=== PATIENT | female | born 1955 ===

== ENCOUNTER 2024-02-24 13:35 | Emergency (ER) | payer OTHER, SELFPAY ==
[2024-02-24 13:38] VITALS: BP 143/71
--- NOTE | 2024-02-24 14:41 | ED.GENMED ---
History of Present Illness
General
Chief Complaint: Skin Problem
Source: patient
Time Seen by Provider: 02/24/24 14:18
Travel History
Have you had any contact with someone who has COVID-19?: No
Do you have any symptoms of coronavirus? Fever > 100 degrees, chills, cough, shortness of breath, sore throat, loss of taste or smell, muscle aches, or headache?: No
History of Present Illness
History of Present Illness:
68-year-old female presenting to the emergency department for evaluation after she is status post right total knee replacement, noticed this morning that 1 staple had not been removed prompting her to come to the ER today. She notes a follow-up
within 2 weeks with her orthopedic surgeon at [facility]. Patient has been taking her usual pain medications as prescribed but is otherwise denying any fevers, chills, rigors or any other infectious symptoms.
Past History
Past History
ED Past Medical History: HTN
ED Past Surgical History: Orthopedic
Social History
Tobacco: Non-smoker
Alcohol: None
Drug: None
Personal:
Living: with family
Review of Systems
Review of Systems
All Other Systems: ROS reviewed and negative except as documented in HPI and ROS
Phy Exam
Physical Exam
Physical Exam:
GENERAL: Alert , in no apparent distress
EYE: conjunctiva clear
Head: Normocephalic atraumatic
NECK: Supple,
ENT: mmm.
LUNGS: no acute respiratory distress
NEUROLOGICAL: Alert and oriented
SKIN: Warm and dry, well-healing vertically oriented scar but there is 1 small area of less than 5 mm wound dehiscence with what appears to be a staple underneath. There is no overlying erythema, warmth or tenderness.
MUSCULOSKELETAL: well perfused.
PSYCH: Normal and appropriate interaction.
Scores
Heart Failure Risk
Heart Failure Risk Score: Not Applicable
Heart Score for Chest Pain Patients
STEMI patient?: Not applicable
Withdrawal Assessment of Alcohol
Withdrawal Assessment Completed?: Not applicable
Course
Vital Signs
Initial and Last Documented VS:
Initial Vital Signs
Temp Pulse Resp BP Pulse Ox
98.2 F 55 16 143/71 98
02/24/24 13:38 02/24/24 13:38 02/24/24 13:38 02/24/24 13:38 02/24/24 13:38
Last Documented Vital Signs
Temp Pulse Resp BP Pulse Ox
98.2 F 55 16 143/71 98
02/24/24 13:38 02/24/24 13:38 02/24/24 13:38 02/24/24 13:38 02/24/24 13:38
Procedures
Laceration Closure
Right Anterior Knee:
Status of Wound: clean
Size of Wound in cm: 0.4
Description of Wound Edges: sharp
Preparation: cleaned with SurClens
Anesthesia: 1% Lidocaine
Skin Closure Material: 4-0 nylon
Number of sutures: 1
Foreign Body Removal-Skin
Wound explored and foreign body removed?: Yes
Anesthesia: 1% lidocaine
Foreign body removed using: incision
Foreign body removed: completely
MDM/Problems Addressed
MDM/Problems Addressed:
68-year-old female presenting emergency department for evaluation after noticing that despite having wade removed as an outpatient, 1 staple remained. There is no sign of infection. As noted above I anesthetized the area where stable was as
this was buried underneath the dermal layer of skin. I had to make a less than 4 mm incision to further expose the staple. Using staple remover I was able to remove the staple in its entirety. Loosely sutured the incisional area that was made
with one 4-0 nylon suture. Dressing was applied. Patient stable for discharge home. She will follow-up with her orthopedic surgeon as scheduled.
*Pulse Oximetry
Patient hypoxic: no
*Critical Care Note
Total Time (30-74mins, 75-104mins- exclusive of procedures): Not Applicable
ED Attending Note
-
Portions of this chart may have been created with voice recognition software.� Occasional wrong word or��sound alike� substitutions may have occurred due to the inherent limitations of voice recognition software.
Discharge Plan
Departure
Patient Disposition: Home (Routine Discharge)
Date of Disposition: 02/24/24
Time of Disposition: 14:41
Patient with high blood pressure during this ER visit?: No
Discharge Problem:
Removal of staple
Instructions: Wound Care (DC)
Interventions
Interventions:
*Risk Screen - Suicide Last Done: 02/24/24 13:38
*General Assessment Last Done: 02/24/24 13:38
*Neglect/Abuse Screening Last Done: 02/24/24 13:38
ED- Fall Risk Assessment Last Done: 02/24/24 14:57
*ED COVID-19 Vaccine History Last Done: 02/24/24 14:57
*Nursing Disposition Last Done: 02/24/24 14:57
ED-Skin Assessment Last Done: 02/24/24 14:57
Discharge Date and Time
Print Language: EGYPTIAN
== END 2024-02-24 15:00 | disposition home or self-care (01) ==
LOC: EMR 13:35
PROVIDERS: EMERGENCY PHYSICIAN Emergency Medicine; FAMILY PHYSICIAN Family Medicine
DX: T81.89XA Other complications of procedures, not elsewhere classified, initial encounter (principal); Y83.8 Other surgical procedures as the cause of abnormal reaction of the patient, or of later complication, without mention of misadventure at the time of the procedure
CPT/HCPCS: 99284; 10120

== ENCOUNTER 2024-03-11 09:59 | Outpatient (RCR) | payer OTHER, SELFPAY | END 2024-03-11 23:59 | disposition home or self-care (01) | LOC: RPT 09:59 | PROVIDERS: ATTENDING PHYSICIAN Orthopaedic Surgery; FAMILY PHYSICIAN Family Medicine | DX: Z47.89 Encounter for other orthopedic aftercare (principal); R26.2 Difficulty in walking, not elsewhere classified; M62.81 Muscle weakness (generalized); Z73.6 Limitation of activities due to disability; M25.561 Pain in right knee; R26.89 Other abnormalities of gait and mobility; Z96.651 Presence of right artificial knee joint | CPT/HCPCS: 97010; 97110; 97163; 97530 ==

== ENCOUNTER 2024-04-11 10:58 | Outpatient (RCR) | payer OTHER, SELFPAY | END 2024-04-11 12:34 | disposition home or self-care (01) | LOC: RPT 10:58 | PROVIDERS: ATTENDING PHYSICIAN Orthopaedic Surgery; FAMILY PHYSICIAN Family Medicine | DX: Z47.1 Aftercare following joint replacement surgery (principal); Z96.651 Presence of right artificial knee joint; Z73.6 Limitation of activities due to disability | CPT/HCPCS: 97010; 97110; 97530 ==

== ENCOUNTER → 2024-07-30 10:38 | Outpatient (REF) | payer OTHER, SELFPAY | LOC: RAD 10:38 | PROVIDERS: ATTENDING PHYSICIAN Family Medicine | DX: M25.562 Pain in left knee (principal) | CPT/HCPCS: 73564 ==

== ENCOUNTER → 2024-08-15 14:46 | Outpatient (REF) | payer OTHER, SELFPAY | LOC: WDC 14:46 | PROVIDERS: ATTENDING PHYSICIAN Family Medicine | DX: Z12.31 Encounter for screening mammogram for malignant neoplasm of breast (principal) | CPT/HCPCS: 77063; 77067 ==

== ENCOUNTER → 2024-08-20 08:47 | Outpatient (REF) | payer OTHER, SELFPAY | LOC: WDC 08:47 | PROVIDERS: ATTENDING PHYSICIAN Family Medicine | DX: R92.8 Other abnormal and inconclusive findings on diagnostic imaging of breast (principal) | CPT/HCPCS: 76642 ==

== ENCOUNTER → 2024-08-30 07:42 | Outpatient (REF) | payer OTHER, SELFPAY | LOC: RAD 07:42 | PROVIDERS: ATTENDING PHYSICIAN Family Medicine; REFERRING PHYSICIAN Orthopaedic Surgery | DX: G89.29 Other chronic pain (principal); M25.562 Pain in left knee | CPT/HCPCS: 76882 ==

== ENCOUNTER → 2025-10-16 13:34 | Outpatient (REF) | payer OTHER, SELFPAY | LOC: WDC 13:34 | PROVIDERS: ATTENDING PHYSICIAN Family Medicine | DX: Z12.31 Encounter for screening mammogram for malignant neoplasm of breast (principal) | CPT/HCPCS: 77063; 77067 ==

== ENCOUNTER → 2025-10-21 08:57 | Outpatient (REF) | payer OTHER, SELFPAY | LOC: WDC 08:57 | PROVIDERS: ATTENDING PHYSICIAN Family Medicine | DX: R92.8 Other abnormal and inconclusive findings on diagnostic imaging of breast (principal) | CPT/HCPCS: 76642 ==